=== PATIENT | female | born 2005 | race Caucasian/White ===

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

== ENCOUNTER 2025-07-13 00:10 | Emergency (ER) | payer BC, MEDICAID, OTHER ==
[~2025-07-13] VITALS: Ht 160 cm; Wt 52.1 kg
[~2025-07-13 00:10] MED LIST: Birth Control
[2025-07-13 00:22] VITALS: BP 126/86; PULSE 117; TEMP 98.7; O2SAT 97
--- NOTE | 2025-07-13 01:15 | Physician Documentation ---
History of Present Illness ~ Chief Complaint: Flu Symptoms Stated Complaint: SOB/THROAT CANCER Time Seen by MD: 01:15 Primary Medical Doctor: Dr. Victoria HPI 20 year old female accompanied by mother, with PMH dysautonomia, recent thyroid cancer diagnosis, presenting to ED with 3 days of cough and headache. Patient states she initially developed a dry cough, today she coughed up mucus that blocked her airway and caused her to choke for 10 minutes. She endorses moderate midline substernal chest pain that does not radiate. She also has neck pain from coughing. She endorses fatigue. Ice packs, hot showers, Aleve, Robutussin, and rest have not relieved her symptoms. She currently feels nauseous but has not vomited. She denies pain with inspiration, leg swelling, dyspnea. She is unsure if she has had a fever. She traveled to [place] and [facility] in one day 5 days ago. Current medications include an OCP. Her mother and grandfather have both had DVT and PE in the past. Medication Reconciliation Allergies: Coded Allergies: No Known Allergies (Unverified , 07/13/25) Miscellaneous Medications [ Control], Unknown Dose, (Reported) Past Medical History Past Medical History: *CANCER* (thyroid) Other Past Medical History: thyroid cancer Past Surgical History: no surgical history Review of Systems Constitutional: Denies: fever Respiratory: Reports: cough, shortness of breath, wheezing Physical Exam Vital Signs: Temperature: 98.7, Source: Temporal, Heart Rate: 117, Respiratory Rate: 13, BP: 126/86, Pulse Oximetry: 97, Weight: 52.100 Physical Exam General: Awake and Alert, no acute distress. HEENT: Conjunctiva pink, Sclera clear, Mucus Membranes moist. Airway patent. Neck: Supple without masses and tenderness. No stridor Resp: Unlabored. Coughs with deep inspiration. Diminished breath sounds bilaterally, L > R. Heart: Regular Rate and rhythm, normal S1 and S2 without murmur, rub or gallop. Tachycardia Extremities: No cyanosis,clubbing or edema. No calf swelling or tenderness. Skin: Warm and Dry. Progress Results/Orders Results/Orders Completed Orders - PAUL RIVAS MD Influenza Type A&B Rapid Test (07/13/25 00:59) Hcg, Ur Ql (07/13/25 00:59) Ua W/Microscopic, Cult If Ind (07/13/25 01:39) Vital Signs 07/13/25 07/13/25 00:22 01:16 Temp 98.7 Pulse 117 Resp 13 17 B/P (MAP) 126/86 Pulse Ox 97 Laboratory Tests Test 07/13/25 01:03 07/13/25 01:05 07/13/25 01:39 SARS-CoV-2 Antigen (Rapid) Negative Influenza Type A Antigen Negative Influenza Type B Antigen Negative Urine Specimen Description Cln catch midstream Urine Color Yellow Urine Clarity Clear Urine pH 6.0 Urine Specific [place] >=1.030 Urine Protein Trace Urine Glucose (UA) Negative Urine Ketones 15 H Urine Occult Blood Moderate H Urine Nitrite Negative Urine Bilirubin Small Urine Urobilinogen 0.2 Urine Leukocyte Esterase Negative Urine RBC 3-10 Urine WBC 0-4 Urine Squamous Epithelial Cells Many Urine Bacteria 2+ Urine Mucus Many Urine Culture Indicated Not ind Volume Urine Centrifuged 10 ml Urine HCG, Qualitative Negative Urine Comment Medical Decision Making Additional information obtaine: family Findings Further history obtained from her mother Differential Dx:Considerations: Include: Pneumonia, Respiratory failure, Viral Syndrome Additional Comment The patient presents with a cough, and history and exam that seem most consistent with a viral upper respiratory infection. She came to the ER because she was choking on her phlegm. Currently she has no difficulty breathing or swallowing. She has a benign exam. Viral swabs were negative. No clinical findings to suggest pneumonia. The patient and her mother were reassured. They felt comfortable returning home with ongoing symptomatic treatment. Departure Time of Disposition: 03:14 Disposition: 01 HOME / SELF CARE / HOMELESS Impression: Primary Impression: Viral URI with cough Condition: Stable Discharge Instructions: Viral Illness Referrals: NO PRIMARY CARE PROVIDER (PCP) Education Educated: Patient, Family Educated regarding: diagnosis, treatment, need for follow up Signature Scribe Signature: na Attestation: PAUL Galindo MD Jul 13, 2025 01:15
[2025-07-13 01:16] VITALS: RESP 17
[2025-07-13 01:28] LABS: INFLUENZA TYPE A ANTIGEN RAPID NEGATIVE (Negative); INFLUENZA TYPE B ANTIGEN RAPID NEGATIVE (Negative)
[2025-07-13 02:06] LABS: LEUKOCYTE ESTERASE ,URINE NEGATIVE (Neg); NITRITES, URINE NEGATIVE (Neg); OCCULT BLOOD,URINE MODERATE (Neg); URINE HCG NEGATIVE (NEG)
[2025-07-13 02:17] LABS: UA COLLECTION TYPE CLN CATCH MIDSTREAM
[2025-07-13 02:19] LABS: MUCUS STRANDS MANY /LPF (Neg); SQUAMOUS EPITHELIAL CELL,UR MANY /LPF (FEW)
== END 2025-07-13 03:27 | disposition home or self-care (01) ==
LOC: ER 00:11
DX: J06.9 Acute upper respiratory infection, unspecified (principal); R05.9 Cough, unspecified; Z85.850 Personal history of malignant neoplasm of thyroid; Z20.822 Contact with and (suspected) exposure to COVID-19
CPT/HCPCS: 36415; 81001; 81025; 87804; 87811; 99283

== ENCOUNTER 2025-07-13 15:08 | Emergency (ER) | payer BC, MEDICAID, OTHER ==
[~2025-07-13] VITALS: Ht 157.5 cm; Wt 86.1 kg
[2025-07-13 15:13] VITALS: TEMP 98.9
--- NOTE | 2025-07-13 15:19 | Physician Documentation ---
History of Present Illness ~ Stated Complaint: MULTIPLE MED ISSUES Time Seen by MD: 15:33 Primary Medical Doctor: Dr. Julien HUYNH 20-year-old female returns to the ED after being seen yesterday evening for cold cough and congestion. With the mother he states she has a PMH this auto normally recent thyroid cancer diagnosis he has states that he developed a cough and mucus which caused her to choke for 10 minute verses substernal chest pain is localized neck pain from coughing endorses fatigue taken several OTC remedies reduction in symptoms came back negative for any flu or COVID during her visit mom is concerned that they have a family history of both DVT and PE Denies leg swelling dyspnea for fever. Patient remains moderately tachycardic Day of Onset: Jul 13, 2025 Medication Reconciliation Allergies: Coded Allergies: No Known Allergies (Unverified , 07/13/25) Miscellaneous Medications [ Control], Unknown Dose, (Reported) Past Medical History Past Medical History: *CANCER* Past Surgical History: no surgical history Physical Exam Physical Exam General: Alert, no apparent distress. Respiratory: Lungs clear, no respiratory distress. Cardiovascular: Regular rate and rhythm, no murmurs. Gastrointestinal: Soft, nontender, nondistended. Bowels sounds present. Neurologic: Oriented x4. Psychiatric: Normal mood and affect. Skin: Normal color, warm and dry. No edema, no ecchymosis. Progress Results/Orders Results/Orders Orders - LEILA DAY [employer] Chest,Single View (07/13/25 15:20) Culture Blood (07/13/25 15:34) Urinalysis, Cult If Indicated (07/13/25 15:34) Completed Orders - LEILA DAY [employer] Chest,Single View (07/13/25 15:20) Cbc/Diff (07/13/25 15:34) Procalcitonin (07/13/25 15:34) BMP (07/13/25 15:34) Lacticsepsis (07/13/25 15:34) Vital Signs 07/13/25 15:13 Temp 98.9 Pulse 110 Resp 18 B/P (MAP) 127/83 Pulse Ox 98 O2 Flow Rate 0 Laboratory Tests Test 07/13/25 15:51 White Blood Count 3.8 L Red Blood Count 4.66 Hemoglobin 13.6 Hematocrit 39.8 Mean Corpuscular Volume 85.4 Mean Corpuscular Hemoglobin 29.1 Mean Corpuscular Hemoglobin Concent 34.1 Red Cell Distribution Width 12.8 Platelet Count 217 Mean Platelet Volume 8.5 Neutrophils (%) (Auto) 40.8 L Lymphocytes (%) (Auto) 46.1 Monocytes (%) (Auto) 12.1 H Eosinophils (%) (Auto) 0.3 Basophils (%) (Auto) 0.7 Neutrophils # (Auto) 1.5 L Lymphocytes # (Auto) 1.7 Monocytes # (Auto) 0.5 Eosinophils # (Auto) 0.0 Basophils # (Auto) 0.0 CBC Comment Sodium Level 141 Potassium Level 3.8 Chloride Level 105 Carbon Dioxide Level 26.6 Anion Gap 9 Blood Urea Nitrogen 12 Creatinine 0.71 Estimated GFR/1.73 m2 > 90 BUN/Creatinine Ratio 16.9 Glucose Level 134 H Lactic Acid Level 1.1 Calcium Level 8.7 Albumin 3.3 L Procalcitonin < 0.05 Chemistry Comments Medical Decision Making Additional information obtaine: old records Findings Patient is return to the ED from yesterday I chose to do further evaluation. Per my interpretation her x-ray opacities or infiltrate her laboratory values showed no signs of infectious processes. He is your the mother and the patient that there was no evidence of lymphangitis. Treat previous provider who evaluated them that the patient is suffering from a upper respiratory virus can them instructions and to increase fluid intake Differential Dx:Considerations: Include: Allergic rhinitis, Influenza, Otitis media, Peritonsillar abscess, Pharyngitis-Diphtheria, Pharyngitis-Streptoccal, Pharyngitis-Viral, Pneumonia, Pnuemonitis, Sinusitis, URI, Other Departure Disposition: 01 HOME / SELF CARE / HOMELESS Impression: Primary Impression: Viral URI with cough Condition: Improved Discharge Instructions: Upper Respiratory Infection, Adult, [id number] Referrals: NO PRIMARY CARE PROVIDER (PCP) Education Educated: Patient Educated regarding: diagnosis Signature Scribe Signature: [email or web address] Attestation: Scribed for Leila Day [employer] by Leila Day - LAN . 07/13/25 16:35 LEILA DAY NP Jul 13, 2025 15:19
--- NOTE | 2025-07-13 15:53 | RADIOLOGY REPORT ---
CHEST RADIOGRAPH INDICATION: cough TECHNIQUE: Single frontal view of the chest was obtained COMPARISON: None FINDINGS: Lines and Tubes: None Lungs: No focal consolidation. Pleura: No effusion. No pneumothorax. Cardiomediastinal contours: Unremarkable Bones: No acute osseous abnormality. IMPRESSION: No acute cardiopulmonary disease.
[2025-07-13 16:09] LABS: MEAN PLATELET VOLUME 8.5 FL (7.4-10.4); RED CELL DISTRIBUTION WIDTH 12.8 % (11.5-14.5)
[2025-07-13 16:12] LABS: CREATININE 0.71 MG/DL (0.40-0.90); TOTAL CARBON DIOXIDE 26.6 MMOL/L (24-32); eCRCL 99 ML/MIN; eGFR > 90 ML/MIN
[2025-07-13 17:23] VITALS: BP 120/86; PULSE 65; RESP 18; O2SAT 98
== END 2025-07-13 17:27 | disposition home or self-care (01) ==
LOC: ER 15:09
DX: J06.9 Acute upper respiratory infection, unspecified (principal); R00.0 Tachycardia, unspecified; Z85.850 Personal history of malignant neoplasm of thyroid
CPT/HCPCS: 36415; 71045; 80048; 83605; 84145; 85025; 87040; 99284